=== PATIENT | male | born 1945 | race Caucasian/White ===

== ENCOUNTER → 2017-03-27 | Day surgery (SDC) | payer OTHER ==
[2017-03-09 09:25] VITALS: Ht 165.1 cm; Wt 64.5 kg
[~2017-03-27] VITALS: Ht 165.1 cm; Wt 64.5 kg
[~2017-03-27] MED LIST: ACETAMINOPHEN 325 MG TAB PO PRN; ACYC-57 PO; ATROPINE SULFATE 0.1 MG/ML 5ML SYR IV PRN; ATROPINE SULFATE 1% OP SOLN 5 ML BTL OPL ONE; BRIMONIDINE TART 0.2% OP SOLN PER DROP CHARGE ONE; BSS FLUSH ONE; CALC600T9 PO; EpINEphrine INJ 1MG/ML AMP 1 MG/ML AMP ONE; GATI0.5S OPL; GLUC1CAP35 PO; HYDR-4079 PO; LACTATED RINGER'S 1000ML 1,000 ML IV SCH; LIDOCAINE 3.5% OPH GEL PER APPLICATION CHARGE OPL SCH; LIDOCAINE 4% OP SOLN DROP CHARGE ONE; LIDOCAINE 4% OP SOLN DROP CHARGE OPL SCH; LIDOCAINE HCL 1% MPF 2 ML VIAL ONE; LISI-461 PO; MIDAZOLAM HCL 1 MG/ML 2ML VIAL ONE; MOXIFLOXACIN OPH SOLN PER DROP CHARGE ONE; MULT-190 PO; POVIDONE-IODINE OP SOLN 30 ML BTL ONE; PRDFOPSD OPL; PROPARACAINE 0.5% OP SOLN PER DROP CHARGE OPL SCH; SIMV20TA2 PO; TOBRAMYCIN/DEXAMETHASONE OPH OINT PER APPLN CHARGE ONE
[2017-03-27] MEDS: MOXIFLOXACIN OPH SOLN PER DROP CHARGE OPL SCH ×3 (11:48→12:09)
--- NOTE | 2017-03-27 13:30 | History & Physical Bridge - [place] ---
H&P Re-Evaluation Bridge Note: I have examined the patient, reviewed the History & Physical and in the interval since the performance of the History & Physical I have noted the following changes of clinical significance: No changes noted
[2017-03-27 14:05] VITALS: TEMP 36.6
--- NOTE | 2017-03-27 14:05 | Discharge Instructions-SurgCtr ---
Discharge Instructions Date of Service Mar 27, 2017. Visit Reason for Visit: Left Eye Central Corneal Ulcer; Band Keratopathy Discharge Discharge Diagnosis / Problem: calcific band keratopathy left eye Discharge Goals Goal(s): Improve function Activity Recommendations Activity Limitations: per Instructions/Follow-up section Lifting Limitations: no more than 5 pounds Anesthesia . Post Anesthesia Instructions: If you have had General Anesthesia or IV Sedation: * Do not drive today. * Resume driving when surgeon permits. * Do not make important decisions or sign legal documents today. * Call surgeon for: 1. Temperature elevations greater than 101 degrees F. 2. Uncontrollable pain. 3. Excessive bleeding. 4. Persistent nausea and vomiting. 5. Medication intolerance (nausea, vomiting or rash). * For nausea and vomiting use only clear liquids such as: tea, soda, bouillon until nausea subsides, then gradually increase diet as tolerated. * If you have any concerns or questions, call your surgeon's office. If physician is unavailable and it is an emergency, call 911 or go to the nearest emergency room. . Instructions / Follow-Up Instructions / Follow-Up ACTIVITY RECOMMENDATIONS: * Light activities * You may walk outside, read, watch television. * Mild irritation and blurred vision are common for the first few days, redness around the white part of the eye is common. MEDICATIONS: Resume previous medications unless instructed otherwise by your surgeon. Eye drops (today and tomorrow): Gatifloxacin - one drop in operative eye every 2 hours while awake Prednisolone 1% - one drop in operative eye every 2 hours while awake SPECIAL CARE INSTRUCTIONS: * If any problems or concerns, please call Dr. Perez's office at . FOLLOW UP VISIT: Follow-up with Dr. Perez in the [place] office as scheduled. If not already scheduled, please call the office at . Diet Recommendations Home Diet: resume previous diet Pending Studies Studies pending at discharge: no Medical Emergencies . Who to Call and When: Medical Emergencies: If at any time you feel your situation is an emergency, please call 911 immediately. . Non-Emergent Contact Non-Emergency issues call your: After School Program Director . . "Provider Documentation" section prepared by Luis Perez. .
--- NOTE | 2017-03-27 14:07 | [facility] Post Operative Brief Note ---
Immediate Operative Summary Operative Date Mar 27, 2017. Pre-Operative Diagnosis Left Eye Central Corneal Ulcer, Band Keratopathy Post-Operative Diagnosis calcific band keratopathy left eye Procedure(s) Performed Lamellar keratectomy with EDTA chelation left eye Surgeon Dr. Perez Government Affairs Director Surgeon(s) NONE Estimated Blood Loss 0ML Findings calcific band keratopathy left eye Fluids (cc crystalloids) see anesthesia record Specimens none, per surgeon Drains none Anesthesia local with sedation Complication(s) None Disposition Recovery Room / PACU
--- NOTE | 2017-03-27 14:21 | Anesthesia Progress Nt - [facility] ---
Anesthesia Post Op Note Date & Time Mar 27, 2017 at 14:20 Vital Signs Pain Intensity: 0 Vital Signs Past 12 Hours Date Time Temp Pulse Resp B/P (MAP) Pulse Ox O2 Delivery O2 Flow Rate FiO2 03/27/17 14:05 36.6 76 16 115/50 (71) 95 Room Air 03/27/17 11:44 36.4 75 18 132/82 (99) 96 Room Air Notes Mental Status: alert / awake / arousable, participated in evaluation Pt Amnestic to Procedure: Yes Nausea / Vomiting: adequately controlled Pain: adequately controlled Airway Patency, RR, SpO2: stable & adequate BP & HR: stable & adequate Hydration State: stable & adequate Anesthetic Complications: no major complications apparent
[2017-03-27 14:30] VITALS: BP 122/71; PULSE 55; O2SAT 97
--- NOTE | 2017-04-04 09:00 | OPERATIVE REPORT ---
DATE OF OPERATION: 03/27/2017 PREOPERATIVE DIAGNOSIS: Calcific band keratopathy, left eye. POSTOPERATIVE DIAGNOSIS: Same. PROCEDURE PERFORMED: Lamellar keratectomy with EDTA chelation of the left eye. COMPLICATIONS: None. ESTIMATED BLOOD LOSS: None. ANESTHESIA: Local with sedation. DESCRIPTION OF PROCEDURE: After informed consent was obtained in the holding area, the patient was wheeled back to the operating room where cardiac monitoring leads and oxygen by nasal cannula was administered by anesthesia. Gentle IV sedation was given, and the patient's left eye was prepped and draped in usual sterile fashion. Wire lid speculum was placed in the left eye and the operating microscope was swung into position. Using 0.12 forceps and a 57 [place] blade, the dense calcific plaque was reflected and dissected off of the surface of the cornea centrally of the left eye. Once this meticulous dissection was done, the residual deep stromal calcium was chelated out of the cornea using EDTA. Weck-Glendy sponges were soaked in the EDTA and placed over the corneal surface. After approximately 10 minutes of doing this, the residual calcium was leached from the cornea. Copious amounts of BSS irrigation were then placed over the eye, a bandage contact was placed on the eye, Vigamox drops was placed on the eye and the wire lid speculum was removed from the eye. The patient tolerated the procedure well and was taken to recovery area in stable condition. I attest to the content of the Intraoperative Record and any orders documented therein. Any exception s are noted below.
== END | disposition home or self-care (01) ==
LOC: X.SURG 11:33
PROVIDERS: ATTEND Ophthalmology
DX: H18.422 Band keratopathy, left eye (principal); I10 Essential (primary) hypertension; Z88.5 Allergy status to narcotic agent; E78.00 Pure hypercholesterolemia, unspecified; Z98.890 Other specified postprocedural states; Z98.41 Cataract extraction status, right eye; Z98.42 Cataract extraction status, left eye